=== PATIENT | female | born 1990 | race Caucasian/White ===

== ENCOUNTER 2024-05-01 12:38 | Outpatient (CLI) | payer MEDICAID, SELFPAY ==
[2024-05-01] VITALS (8 sets, daily range): BP systolic 98–117; BP diastolic 59–67; PULSE 64–86; RESP 16; BMI 39.4
--- NOTE | 2024-05-01 12:42 | US_ITS ---
WS: [id number] ULTRASOUND OB FOCUSED HISTORY: contractions, evaluate heart rate. COMPARISON: None available. Single intrauterine gestation is identified. Heart rate of 100 heart rate at 148 BPM. Fetus in variable position. Placenta is anterior with no abruption or previa. Grade 0. There is a Bra xton Jaimes along the lower uterine segment. US/US OB limited [id number] IMPRESSION: 1. Normal cardiac activity. 2. Anterior placenta.
--- NOTE | 2024-05-01 12:44 | US_ITS ---
WS: [id number] US transvaginal [id number] HISTORY: contractions, evaluate cervical length. COMPARISON: None available. Transvaginal imaging is performed to evaluate the cervix. The cervix is closed and normal length of 4 .4 cm. There is a mucous plug noted. No cervical insufficiency. US/US transvaginal [id number] IMPRESSION: No cervical insufficiency. Normal length.
[2024-05-01 14:18] LABS: Bacteria Urine TRACE /hpf; Bilirubin Urine Neg (Negative); Blood Urine Neg (Negative); Glucose Urine UA Norm (Normal); Ketones Urine Negative (Negative); Leukocyte Esterase Urine Negative (Negative); Nitrate Urine Negative (Negative); Protein Urine Neg (Negative); Squamous Epithelial Cell Urine 0-4 /hpf (0-5); Urine Appearance Clear (CLEAR); Urine Color Yellow (Yellow); Urobilinogen Urine Norm (Negative); WBC Urine 0-4 /hpf (0-5); pH Urine 6.5 (5-7)
[2024-05-01 14:19] LABS: Add Urine Culture? No
[2024-05-01] MEDS: hyDROXYzine 25 mg Capsule 50 MG PO (14:58)
[2024-05-01] MEDS: lactated ringers 1,000 ML 150 ML IV (14:59)
== END 2024-05-01 16:10 | disposition home or self-care (01) ==
LOC: OPOB 12:40 → OBGYN 12:41
PROVIDERS: Visit Provider Family Medicine
DX: O26.899 Other specified pregnancy related conditions, unspecified trimester (principal); Z3A.00 Weeks of gestation of pregnancy not specified; R10.9 Unspecified abdominal pain
CPT/HCPCS: 76815; 76830; 81001; J7120

== ENCOUNTER 2024-09-19 09:35 | Outpatient (CLI) | payer MEDICAID, SELFPAY ==
[2024-09-19 09:51] VITALS: BP 108/70; PULSE 82
[2024-09-19 09:53] VITALS: BMI 41.4
[2024-09-19 09:57] VITALS: BP 104/64; PULSE 76
[2024-09-19 10:01] LABS: Nitrazine Paper, PH Inconclusive
[2024-09-19 10:12] VITALS: BP 109/69; PULSE 71
[2024-09-19 10:28] VITALS: BP 109/69; PULSE 71; RESP 12
== END 2024-09-19 10:30 | disposition home or self-care (01) ==
LOC: OPOB 09:35 → OBGYN 09:36
PROVIDERS: Visit Provider Family Medicine
DX: O36.8190 Decreased fetal movements, unspecified trimester, not applicable or unspecified (principal); Z3A.00 Weeks of gestation of pregnancy not specified
CPT/HCPCS: 59025; 83986; 99211

== ENCOUNTER 2024-09-23 08:05 | Inpatient (IN) | payer MEDICAID, SELFPAY ==
[2024-09-23] VITALS (56 sets, daily range): BP systolic 104–136; BP diastolic 57–92; PULSE 62–98; RESP 17–18; TEMP 36.1–36.9; O2SAT 95–99; BMI 43.9
[2024-09-23] MEDS: dextrose 5%-lactated ringers 1,000 ML 125 ML IV ×2 (09:00→12:00)
[2024-09-23] MEDS: ampicillin 2,000 MG in sodium chloride 0.9% (plus) 50 ML 100 MG IV (09:00)
[2024-09-23 09:12] LABS: Basophils % 0.4 %; Eosinophils # 0.1 10^3/uL (0.0-0.8); Eosinophils % 1.9 %; Hematocrit 40.1 % (36-47); Lymphocytes # 1.5 10^3/uL (0.8-4.8); Lymphocytes % 21.3 %; Mean Corpuscular HGB Conc 31.4 g/dL (30-55); Mean Corpuscular Hemoglobin 28.2 pg (27-33); Mean Corpuscular Volume 89.7 fl (85-98); Mean Platelet Volume 10.1 fL (7.4-10.4); Monocytes # 0.6 10^3/uL (0.2-0.9); Monocytes % 8.6 %; Neutrophils # 4.71 10^3/uL (1.8-7.7); Neutrophils % 67.1 %; Nucleated Red Blood Cells % 0 %; Platelet Count 258 10^3/cmm (157-399); Red Blood Count 4.47 10^6/uL (3.85-5.65); Red Cell Distribution Width 14.5 % (12.1-15.1); White Blood Count 7.01 10^3/uL (3.29-11.43)
[2024-09-23] MEDS: oxytocin 30 UNIT/500 ML BAG IV (09:30)
--- NOTE | 2024-09-23 12:29 | P.ANESASSM_ITS ---
Pre-Anesthetic Assessment Height/Weight: Height 1.6 m Weight 112.491 kg Pulse BP Pulse Ox 98 134/81 98 09/23/24 12:25 09/23/24 12:23 09/23/24 12:25 Preop Diagnosis: Labor pain DARYL Was Beta Richard taken within 24 hours: N/A Was Clonidine taken within 24 hours: N/A Social No alcohol and No tobacco Exam alert, oriented x 3, clear to auscultation bilaterally and regular rate & rhythm Airway Submandibular: within normal limits Cervical ROM: within normal limits Mallampati: Class II Dentition: full History/ROS No significant history except as noted and No significant complaints Pulmonary None reported CV/HEM None reported Hx stones Hepatic None reported GI Gastroesophageal Reflux Disease Metabolic Morbid Obesity Musc/skel None reported Neuropsych None reported Anesthetic Plan ASA status: 2 Anesthesia: Anesthesia Evaluation and Regional (specify below) Other: DARYL Risk of > 500 ml blood loss (7ml/kg in children): No Medications/Allergies Current Medications Generic Name Dose Route Start Last Admin Trade Name Freq PRN Reason Stop Dose Admin Dextrose/Lactated Ringer's 1,000 mls @ 125 mls/hr 09/23/24 08:00 09/23/24 11:05 Dextrose 5%-Lactated Ringers IV 999 mls/hr .Q8H CESAR Infusion Oxytocin 30 unit in 500 mls @ 1 mls/hr 09/23/24 08:00 09/23/24 11:15 Pitocin IV 15 milliunit/min .Q24H CESAR 15 mls/hr Titration Protocol 1 MILLIUNIT/MIN PFSH Anesthesia Female Reproductive History : 5 Data Anesthesia 09/23/24 08:52 Short CBC 09/23/24 Range/Units 08:52 WBC 7.01 (3.29-11.43) 10^3/uL Hgb 12.60 (11.27-16.99) g/dL Hct 40.1 (36-47) % MCV 89.7 (85-98) fl Plt Count 258 (157-399) 10^3/cmm Neut % (Auto) 67.1 % Neut # (Auto) 4.71 (1.8-7.7) 10^3/uL Blood Bank 09/23/24 08:52 Blood Type O Positive Rho(D) Type Rh positive Antibody Screen Negative Cardiac Studies: 2 No Data to Display
--- NOTE | 2024-09-23 12:31 | ANES.PROC ---
Anesthesia Procedures Procedure/Date: 09/23/24 Epidural: Time Out Performed: Yes Consents Signed: Procedure Consent Consent: requested by attending/covering physician, from patient, risks and benefits reviewed and patient agrees to proceed Lumbar Level: L3-L4 Epidural position: sitting Epidural procedure: sterile prep of area, 1% lidocaine to numb the area, 18 g needle, negative for paresthesia passed, neg for paresthesia, test dose given, 1.5% xylocaine 1:200k epi (5cc), 0.2% Ropivacaine bolus ml (5cc and Fentanyl 100 mcg), placed PCEA, no systemic response, sterile dressing applied, L.U.D. no apparent complications and 0.2% Ropiavacaine @ mls/hr Additional Comments: Pt tolerated well
[2024-09-23] MEDS: ROPivacaine syringe 100 MG/50 ML SYRINGE 13 MG EPIDURAL ×2 (12:35→16:01)
[2024-09-23] MEDS: ampicillin 1,000 MG in sodium chloride 0.9% (plus) 50 ML 100 MG IV ×2 (12:37→16:07)
--- NOTE | 2024-09-23 17:54 | PM.OPHPUD ---
Labor & Delivery H&P Update Date of Procedure: September 23, 2024 Date H&P Performed: 09/20/24 Admission Diagnosis: IUP at 39 weeks 0 days gestation Preop diagnosis: Elective induction Planned procedure: Induction of labor and delivery
--- NOTE | 2024-09-23 17:55 | P.PCNOB_ITS ---
Delivery Note: Date of delivery: September 23, 2024 Pre-delivery diagnoses: IUP at 39 weeks 0 days gestation Post-delivery diagnoses: Normal spontaneous vaginal delivery of a viable female infant at 39 w eeks 0 days gestation Procedure: Normal spontaneous vaginal delivery Estimated blood loss (mL): 200 Pre-Delivery Course: The patient had routine care at [facility]. labs: Blood type O+, antibody negative, hepatitis B nonreactive, hep atitis C nonreactive, HIV nonreactive, rubella immune, GC chlamydia negative, RPR nonreactive, UDS positive for amphetamines, Q low risk, she passed her glucose tolerance test, she was GBS positive. Note: Though the patient was positive for amphetamines on her urine drug screen, there were no suspicious signs or symptoms during her care with myself. Consider false positive. Delivery: This is a 34-year-old -0-1-3 at 39 weeks 0 days gestation who is here for an elective induction. Her cervix was favorable so she was started on Pitocin. She was GBS positive and was started on ampicillin protocol. She received 3 doses of ampicillin prior to delivery. She received an epidural for pain management. She underwent artificial rupture of membranes with clear fluid. Rupture of membranes was approximately 5 hours prior to delivery. She only had to push through 2 contractions and had a normal spontaneous vaginal delivery of a viable female infant weight to be determined, Apgars 8 and 9 over an intact perineum. There was a loose body cord upon delivery. The was suctioned upon delivery and placed on the mother's chest. The cord was clamped and cut. The placenta was delivered grossly intact and normal to inspection. There was a superficial periclitoral tear that was not bleeding. No suturing was required. Mother and infant were doing well after delivery. Coding Level of Care Code Acute Code for Chg Fwd
[2024-09-23 20:41] LABS: Amphetamines Screen Urine Negative (Negative); Barbiturates Screen Urine Negative (Negative); Benzodiazepines Screen Urine Negative (Negative); Cocaine Screen Urine Negative (Negative); Opiate Screen Urine Negative (Negative); PCP Screen Urine Negative (Negative); THC Screen Urine Negative (Negative)
[2024-09-23] MEDS: ibuprofen 800 mg tablet PO (20:51)
[2024-09-24 04:32] VITALS: BP 120/86; PULSE 97; RESP 18; TEMP 36.5; O2SAT 98
[2024-09-24 06:59] LABS: Hematocrit 39.6 % (36-47); Mean Corpuscular HGB Conc 31.8 g/dL (30-55); Mean Corpuscular Hemoglobin 28.2 pg (27-33); Mean Corpuscular Volume 88.6 fl (85-98); Mean Platelet Volume 10.1 fL (7.4-10.4); Platelet Count 264 10^3/cmm (157-399); Red Blood Count 4.47 10^6/uL (3.85-5.65); Red Cell Distribution Width 14.5 % (12.1-15.1); White Blood Count 11.11 10^3/uL (3.29-11.43)
[2024-09-24] MEDS: lactated ringers 1,000 ML 999 ML IV (07:10)
[2024-09-24] MEDS: famotidine 20 mg/2 mL INJ IVP (07:30)
[2024-09-24] MEDS: metoclopramide 5 mg/mL SDV 2 mL 10 MG IVP (07:30)
[2024-09-24] MEDS: citric acid-sodium citrate 30 mL UDC PO (07:30)
--- NOTE | 2024-09-24 08:00 | ANE.PACU2 ---
Inpatient post-anesthesia follow up: Airway intact: Yes Vital signs: Temperature 97.6 F Pulse Rate 85 Respiratory Rate 16 Blood Pressure 121/85 Pulse Oximetry 98 Oxygen Delivery Me thod Room Air Oxygen Flow Rate Fraction of Inspir ed Oxygen Hydration adequate: Yes Nausea and vomiting: No Pain level: 1 Mental status: Baseline Epidural Start/End: Epidural Start Date: 09/23/24 Epidural Start Time: 12:08 Epidural End Date: 09/23/24 Epidural End Time: 17:55
--- NOTE | 2024-09-24 08:01 | PM.DCS ---
Discharge Providers Date of Admission: 09/23/24 08:05 Date of Discharge: September 24, 2024 Attending Provider at Admission: Amber Ryder MD Attending Provider at Discharge: Amber Ryder MD Reason for Visit Reason for Visit: iol Hospital Course Hospital Course This is a 34-year-old G5 now P4 who underwent an elective induction and had a viable female yesterday via normal spontaneous vaginal delivery. Today she is ambulating, tolerating a regular diet, has some cramping but otherwise no pain. She has decreased vaginal bleeding. She is comfortable with discharge home. Physical Exam Narrative: Alert and oriented, sitting up in bed, heart regular rate and rhythm, lungs clear to auscultation bilaterally, abdomen is soft and nontender, fundus is firm, extremities have trace edema but no calf tenderness Urinary Catheter Management: [place]: Cath Placed During This Visit: yes, but has since been removed by the nurse Reason for Continuing Indwelling Catheter: Decision to DC Catheter Urinary Catheter Date of Insertion: 09/23/24 Urinary Catheter Time of Insertion: 13:06 Date Urinary Catheter Removed: 09/23/24 Time Urinary Catheter Discontinued: 17:35 Discharge Data Studies Completed and Pending Laboratory Results WBC 11.11 10^3/uL (3.29-11.43) 09/24/24 06:45 RBC 4.47 10^6/uL (3.85-5.65) 09/24/24 06:45 Hgb 12.60 g/dL (11.27-16.99) 09/24/24 06:45 Hct 39.6 % (36-47) 09/24/24 06:45 MCV 88.6 fl (85-98) 09/24/24 06:45 MCH 28.2 pg (27-33) 09/24/24 06:45 MCHC 31.8 g/dL (30-55) 09/24/24 06:45 RDW 14.5 % (12.1-15.1) 09/24/24 06:45 Plt Count 264 10^3/cmm (157-399) 09/24/24 06:45 MPV 10.1 fL (7.4-10.4) 09/24/24 06:45 Neut % (Auto) 67.1 % 09/23/24 08:52 Lymph % (Auto) 21.3 % 09/23/24 08:52 [place] % (Auto) 8.6 % 09/23/24 08:52 Eos % (Auto) 1.9 % 09/23/24 08:52 Baso % (Auto) 0.4 % 09/23/24 08:52 Neut # (Auto) 4.71 10^3/uL (1.8-7.7) 09/23/24 08:52 Lymph # (Auto) 1.5 10^3/uL (0.8-4.8) 09/23/24 08:52 [place] # (Auto) 0.6 10^3/uL (0.2-0.9) 09/23/24 08:52 Eos # (Auto) 0.1 10^3/uL (0.0-0.8) 09/23/24 08:52 Baso # (Auto) 0.0 10^3/uL (0.0-0.1) 09/23/24 08:52 Nucleated RBC % (auto) 0 % 09/23/24 08:52 Nucleated RBCs # 0.0 /100WBC 09/23/24 08:52 Urine Opiates Screen Negative ng/mL (Negative) 09/23/24 20:14 Ur Barbiturates Screen Negative ng/mL (Negative) 09/23/24 20:14 Ur Phencyclidine Scrn Negative ng/mL (Negative) 09/23/24 20:14 Ur Amphetamines Screen Negative ng/mL (Negative) 09/23/24 20:14 U Benzodiazepines Scrn Negative ng/mL (Negative) 09/23/24 20:14 Urine Cocaine Screen Negative ng/mL (Negative) 09/23/24 20:14 U Marijuana (THC) Screen Negative ng/mL (Negative) 09/23/24 20:14 Blood Type O Positive 09/23/24 08:52 Rho(D) Type Rh positive 09/23/24 08:52 Antibody Screen Negative 09/23/24 08:52 Vitals Last Vital Signs Temp 97.7 F 09/24/24 04:32 Pulse 97 09/24/24 04:32 Resp 18 09/24/24 04:32 BP 120/86 09/24/24 04:32 Pulse Ox 98 09/24/24 04:32 O2 Del Method Room Air 09/24/24 04:32 Discharge Plan Discharge Patient Disposition: Home Condition: Stable Prescriptions: Continued 1 tab PO DAILY Discharge Orders: Discharge Order (Routine); Ordered 09/24/24 Ordered By: Amber Ryder Referrals: Amber Ryder MD [Physician] - 1 month Discharge Diet: Usual diet Discharge Activity: Limit activity as instructed Patient Instructions: Opioid Safety Activity Restrictions/Additional Instructions: Nothing per vagina for 6 weeks Discharge Attestations Time Spent in Discharge Care*: less than 30 min Quality Metrics Clinical Quality Measures [ No reported AMI, CVA or VTE this stay] Coding Level of Care Code Acute Code for Chg Fwmariely
[2024-09-24] MEDS: PRENATAL VIT NO.130/IRON/FOLIC 1 EACH TABLET PO (08:56)
[2024-09-24] MEDS: ibuprofen 800 mg tablet PO ×2 (08:56→15:42)
[2024-09-24 10:00] VITALS: BP 116/71; PULSE 73; RESP 17; TEMP 36.6; O2SAT 97
[2024-09-24 16:10] VITALS: BP 147/92; PULSE 74; RESP 17; TEMP 36.7; O2SAT 97
[2024-09-24 17:43] VITALS: BP 121/85; PULSE 85; RESP 16; TEMP 36.4; O2SAT 98
--- NOTE | 2024-09-24 17:45 | PC.NURSE ---
Patient refused flu shot at time of discharge
== END 2024-09-24 18:15 | disposition home or self-care (01) | DRG 807 ==
LOC: OPOB 17:57 → OBGYN 17:57
PROVIDERS: Admitting Provider Family Medicine; Visit Provider Family Medicine
DX: O99.824 Streptococcus B carrier state complicating childbirth (principal); Z37.0 Single live birth; Z3A.39 39 weeks gestation of pregnancy; O69.81X0 Labor and delivery complicated by cord around neck, without compression, not applicable or unspecified
CPT/HCPCS: 36415; 51702; 59025; 59409; 80306; 85025; 85027; 86850; 86900; 96374; J0290; J0330; J1100; J2405; J2590; J2704; J2765; J2795; J3010; J3490; J7120; J7121

== ENCOUNTER 2025-06-15 11:00 | Oncology outpatient (recurring) (ONCR) | payer MEDICAID, SELFPAY ==
[2025-06-07 16:24] LABS: Hematocrit 40.6 % (36-47); Hemoglobin 13.00 g/dL (11.27-16.99); Mean Corpuscular HGB Conc 32.0 g/dL (30-55); Mean Corpuscular Hemoglobin 28.6 pg (27-33); Mean Corpuscular Volume 89.2 fl (85-98); Nucleated Red Blood Cells % 0 %; Platelet Count 411 10^3/cmm (157-399); Red Blood Count 4.55 10^6/uL (3.85-5.65); White Blood Count 10.46 10^3/uL (3.29-11.43)
[2025-06-07 16:48] LABS: Alanine Aminotransferase 11 U/L (0-33); Albumin Level 4.4 g/dL (3.5-5.2); Alkaline Phosphatase 69 U/L (35-105); Anion Gap 16.3 (5-19); Aspartate Amino Transferase 12 U/L (0-32); Blood Urea Nitrogen 11 mg/dL (6-20); Calcium 9.1 mg/dL (8.5-10.5); Carbon Dioxide 26 mmol/L (22-29); Chloride 104 mmol/L (98-107); Creatinine Clr Calc Pharmacy 155.6660; Globulin 2.8 g/dL (1.3-4.6); Glucose 95 mg/dL (65-115); Osmolality Calculated 293 mOsm/kg (285-295); Potassium 4.3 mmol/L (3.5-5.1); Sodium 142 mmol/L (136-145); Total Protein 7.2 g/dL (6.6-8.7)
--- NOTE | 2025-06-15 11:00 | PETR_ITS ---
PROCEDURE INFORMATION: Exam: PET/CT Whole Body Exam date and time: 06/15/2025 12:12 PM Age: 35 years old Clinical indication: Condition or disease; Primary cancer: Cutaneous malignant melanoma; Initial oncological staging assessment LABS AND CLINICAL REPORTS: Glucose: 106 mg/dl Treatment strategy for malignancy (PET staging): Initial Staging (PI) TECHNIQUE: Imaging protocol: Following at least four-hour fasting and following the injection of radiopharmaceutical, low dose CT images were obtained. Then, PET images were obtained. Attenuation corrected images were constructed using the CT scan. Fused images of PET and CT were reviewed. The standardized uptake values (SUV) reported below are maximum values within a region of interest, expressed in gm/ml. Exam includes the whole body. SUV normalization method: BodyWeight Radiopharmaceutical: 11.71 mCi F-18 FDG (Fluorodeoxyglucose), IV. Time of imaging post radiopharmaceutical administration: 45 minutes Injection site: RIGHT AC COMPARISON: [place] [id number] 07/17/2024 10:18 AM FINDINGS: Brain: No abnormal uptake. Pharynx: Bilateral symmetric tonsillar uptake is suggestive of benign finding. Larynx: No abnormal uptake. Thyroid: About 1 cm right thyroid nodule measures 24.3 SUV. Lungs, pleura and trachea: No abnormal uptake. No lung nodules or masses. No pleural effusion. Heart: No abnormal uptake. There is no cardiomegaly. The no coronary There is no pericardial effusion. Mediastinal space: No abnormal uptake. Liver: No abnormal uptake. Gallbladder and biliary ducts: Unremarkable. Status post cholecystectomy. Pancreas: Normal distribution of radiotracer. Spleen: No abnormal uptake. No splenomegaly. Adrenal glands: No abnormal uptake. No nodules. Kidneys and ureters: Normal physiologic uptake. No hydronephrosis. Stomach and bowel: No abnormal uptake. Vasculature: No abnormal uptake. Lymph nodes: No abnormal uptake. Skeleton: No abnormal uptake in the visualized axial and appendicular skeleton. Soft tissues: Linear area of increased uptake of 3.9 SUV along the surgical incision in the left upper back represents benign postsurgical finding. 8 x 3.3 x 10 cm fluid collection in the left posterior upper back laterally extending into the left axilla represents postsurgical seroma. There are surgical clips in the left axilla suggestive of sequela of prior lymphadenectomy. METRICS: Mediastinal blood pool maximal uptake is 3.1 SUV. Liver maximal uptake is 3.7 SUV. PET/PET WB melanoma INITIAL [id number] IMPRESSION: 1. About 1 cm right thyroid nodule with intense uptake of 24.3 SUV. Further evaluation with ultrasound and biopsy is recommended to exclude malignancy. No other FDG avid findings. 2. Benign postsurgical changes after melanoma excision in the left upper back and left axillary lymphadenectomy.
== END 2025-06-21 23:59 | disposition home or self-care (01) ==
LOC: ONCMED 06-18 10:41
PROVIDERS: PCP Family Medicine; Visit Provider Internal Medicine
DX: C43.9 Malignant melanoma of skin, unspecified (principal); E04.1 Nontoxic single thyroid nodule; Z98.890 Other specified postprocedural states; R93.89 Abnormal findings on diagnostic imaging of other specified body structures; Z90.49 Acquired absence of other specified parts of digestive tract; M79.89 Other specified soft tissue disorders; Z53.9 Procedure and treatment not carried out, unspecified reason
CPT/HCPCS: 36415; 78816; 80053; 83615; 85025; A9552

== ENCOUNTER 2025-06-18 07:46 | Day surgery (SDC) | payer MEDICAID, SELFPAY ==
[2025-06-18] VITALS (8 sets, daily range): BP systolic 112–137; BP diastolic 67–81; PULSE 84–106; RESP 17–23; TEMP 36.1–37.2; O2SAT 94–98; BMI 42.8
[2025-06-18 08:19] LABS: OR HCG Qualitative Urine Negative (Negative)
--- NOTE | 2025-06-18 08:29 | P.HPUD_ITS ---
Surgery/Procedure H&P Update DATE OF PROCEDURE: June 18, 2025 DATE H&P PERFORMED: 06/13/25 H&P UPDATE INFORMATION: I have reviewed H&P completed within last 30 days, I have examined patient prior to procedure, No changes to prior documentation, H&P is in [facility] EMR on date indicated and Risks and benefits of the procedure reviewed PLANNED PROCEDURE: Operation Date: 06/18/25 09:35 Proposed Procedures p Port a Cath Insertion 40095 Z95.828 C43.9(Not Applicable) - Boone Bland MD
--- NOTE | 2025-06-18 09:35 | SC_ITS ---
WS: [id number] C-ARM RADIOGRAPHS CHEST; 2 IMAGES HISTORY: intraoperative COMPARISON: None available. Intraoperative imaging during Mediport placement. Mediport projects over the RIGHT upper thorax with tip directed towards the distal SVC. SC/C-arm FL for CVA [id number] IMPRESSION: Intraoperative imaging during Mediport placement.
--- NOTE | 2025-06-18 10:03 | ANES.PREANE2 ---
Pre-Anesthetic Assessment Height/Weight: Height 5 ft 3 in Weight 242 lb Temp Pulse Resp BP Pulse Ox O2 Del Method 99 F 84 18 123/81 98 Room Air 06/18/25 08:06 06/18/25 08:06 06/18/25 08:06 06/18/25 08:06 06/18/25 08:06 06/18/25 08:09 Preop Diagnosis: malignant melanoma Operation Date: 06/18/25 09:35 Proposed Procedures p Port a Cath Insertion 33702 Z95.828 C43.9(Not Applicable) - Boone Bland MD Was Beta Richard taken within 24 hours: N/A Was Clonidine taken within 24 hours: N/A Last intake: Intake Last Liquid Date 06/17/25 Last Liquid Time 21:00 Last Solid Date 06/17/25 Last Solid Time 21:00 Social No alcohol and No tobacco Exam alert, oriented x 3, clear to auscultation bilaterally and regular rate & rhythm Airway Submandibular: within normal limits Cervical ROM: within normal limits Mallampati: Class II Dentition: full Anesthetic Plan ASA status: 3 Anesthesia: MAC Other: No prior issues with anesthesia NPO since yesterday evening Patient has cutaneous malignant melanoma planning on immunotherapy Denies any cardiac or pulmonary issues METs greater than 4 Plan for MAC anesthesia with local via surgeon Medications/Allergies Home Medications ?Medication ?Instructions ?Recorded ?Confirmed ?Last Taken ?Type levonorgestrel-ethinyl estradiol 1 tab PO DIRECTED 06/07/25 06/18/25 06/17/25 History 0.1 mg-20 mcg tablet (Aviane) Allergies Allergy/AdvReac Type Severity Reaction Status Date / Time adhesive Allergy ALGY-Rash Verified 06/14/25 13:44 Latex, Natural Rubber Allergy ALGY-Rash Verified 06/13/25 13:59 Current Medications Generic Name Dose Route Start Last Admin Trade Name Freq PRN Reason Stop Dose Admin Sodium Chloride 1,000 mls @ 30 mls/hr 06/18/25 08:00 06/18/25 08:15 Sodium Chloride 0.9% IV 06/19/25 07:59 30 mls/hr .Q24H CESAR Administration PFSH Anesthesia Social History Smoking and tobacco/nicotine status: never used tobacco/nicotine
[2025-06-18] MEDS: ceFAZolin 2,000 mg SDV 2000 MG IVP (10:14)
[2025-06-18] MEDS: BUPivacaine 0.25% INJ 10 mL INJECTION (10:36)
[2025-06-18] MEDS: lidocaine-epi 1% 20 mL INJ 10 ML INJECTION (10:36)
[2025-06-18] MEDS: heparin, porcine 1,000 unit/mL INJ 10 mL 6000 UNIT IRRIGATION (10:36)
--- NOTE | 2025-06-18 10:58 | PM.OP ---
Operative Report Date of procedure: June 18, 2025 Pre-op diagnosis: Malignant melanoma Post-op diagnosis: Same Post-op findings: Normal vascular anatomy of the right neck Procedure done: Insertion of right IJ Port-A-Cath Implants: Bard Port-A-Cath Specimens removed/disposition: None Surgeon: Boone Bland MD Cosmetology Educator: FAHEEM OR staff Estimated blood loss: 10 Complications: none Brief History: 35-year-old female with history of malignant melanoma who presents for port placement to initiate systemic therapy. After discussion of risk benefits we decided to proceed Procedure: Patient was brought into the OR, she was placed in a supine position, moderate anesthesia sedation was given. Timeout was conducted after the skin was prepped and draped in the usual sterile fashion. I then proceeded to identify the right IJ vein with ultrasound, I infiltrated local anesthesia on top of the vein. I then proceeded to cannulate the vein under direct ultrasound guidance using an 18-gauge needle, the needle tip was seen entering the vein and immediate return of blood was noted. A wire was advanced through the needle and the needle was removed. The position of the wire was verified with ultrasound and fluoroscopy. The wire was then fixed to the drapes. I then placed my attention to the chest, local anesthesia was infiltrated in the previously marked area on the chest and then a tract connecting the chest to the wire insertion site in the neck. I then proceeded to make a 3.5 cm incision in the right upper chest, the incision was deepened to subcutaneous tissue with electrocautery and electrocautery was used to create the subcutaneous pocket to house the Port-A-Cath. I then proceeded to use a hemostat to create a tunnel from the chest wound to the neck. I then proceeded to make a 0.5 cm incision at the level of the wire insertion site in the neck. Hemostasis was verified. I then placed the Port-A-Cath in the pocket and tunneled the catheter using the provided tunneler. The catheter was cut to appropriate length under fluoroscopy guidance and then flushed. I then proceeded to insert an introducer with a peel-off sheath over the wire under direct fluoroscopic guidance. I then remove the wire and the introducer leaving the peel-off sheath in place. The catheter was then advanced through the peel-off sheath and the peel-off sheath was removed leaving the catheter in place. Fluoroscopy showed evidence of Adequate catheter position. I then proceeded to access the port; the port was retrieving blood and flushing fine, I then hep-locked the catheter. Hemostasis was verified. The wound was closed in layers using #3-0 Vicryl for the subcutaneous tissue and #4 Monocryl for the skin. Dermabond was applied. At the end of the procedure all counts were correct. The patient tolerated well the procedure and was transferred to the PACU in stable condition.
[2025-06-18] MEDS: oxyCODONE 5 mg IR Tab/Cap PO (11:45)
--- NOTE | 2025-06-18 12:12 | ANE.PACU2 ---
Inpatient post-anesthesia follow up: Airway intact: Yes Vital signs: Temperature 97 F Pulse Rate 87 Respiratory Rate 18 Blood Pressure 112/73 Pulse Oximetry 96 Oxygen Delivery Me thod Room Air Oxygen Flow Rate 0 Fraction of Inspir ed Oxygen Hydration adequate: Yes Nausea and vomiting: No Pain level: 1 Mental status: Baseline
== END 2025-06-18 12:12 | disposition home or self-care (01) ==
PROVIDERS: Student in an Organized Health Care Education/Training Program; PCP Family Medicine; Visit Provider Surgery
PROC: (CPT 36561; principal; 2025-06-18 09:25)
DX: C43.9 Malignant melanoma of skin, unspecified (principal)
CPT/HCPCS: 36561; 76000; 77001; 81025; C1788; J0690; J1644; J2250; J2704; J3010; J3490; J7030; J9999

== ENCOUNTER 2025-07-11 07:30 | Oncology outpatient (recurring) (ONCR) | payer MEDICAID, SELFPAY ==
--- NOTE | 2025-06-29 17:00 | US_ITS ---
WS: [id number] THYROID ULTRASOUND HISTORY: Right thyroid nodule COMPARISON: PET/CT 06/15/2025 Right lobe: 1.6 cm x 1.3 cm x 3.9 cm (w x ap x l). Volume: 4.0 cm3. Mid anterior RIGHT thyroid towards the isthmus. Nodule is well-circumscribed measures 0.8 x 0.7 x 0.9 cm. No echogenic foci. This nodule was positive on recent PET/CT. Left lobe: 1.5 cm x 1.2 cm x 3.6 cm (w x ap x l). Volume: 3.2 cm3. Normal size and echotexture. No significant or dominant nodules are present. Isthmus: 0.4 cm. US/US thyroid [id number] IMPRESSION: 1. TI-RADS 4: Moderately suspicious nodule mid RIGHT thyroid towards the isthm us. This nodule was positive on PET/CT. Recommend ultrasound-guided FNA at this time. 2. Negative LEFT thyroid.
[2025-07-11 07:42] LABS: Hematocrit 41.3 % (36-47); Hemoglobin 13.30 g/dL (11.27-16.99); Mean Corpuscular HGB Conc 32.2 g/dL (30-55); Mean Corpuscular Hemoglobin 28.5 pg (27-33); Mean Corpuscular Volume 88.6 fl (85-98); Nucleated Red Blood Cells % 0 %; Platelet Count 353 10^3/cmm (157-399); Red Blood Count 4.66 10^6/uL (3.85-5.65); White Blood Count 7.93 10^3/uL (3.29-11.43)
[2025-07-11 08:12] LABS: Alanine Aminotransferase 19 U/L (0-33); Albumin Level 4.3 g/dL (3.5-5.2); Alkaline Phosphatase 74 U/L (35-105); Anion Gap 15.2 (5-19); Aspartate Amino Transferase 19 U/L (0-32); Blood Urea Nitrogen 11 mg/dL (6-20); Calcium 9.0 mg/dL (8.5-10.5); Carbon Dioxide 24 mmol/L (22-29); Chloride 103 mmol/L (98-107); Creatinine Clr Calc Pharmacy 133.1072; Free T4 Free Thyroxine 1.10 ng/dL (0.82-1.77); Globulin 2.4 g/dL (1.3-4.6); Glucose 108 mg/dL (65-115); Osmolality Calculated 286 mOsm/kg (285-295); Potassium 4.2 mmol/L (3.5-5.1); Sodium 138 mmol/L (136-145); Thyroid Stimulating Hormone 0.72 uIU/mL (0.27-4.20); Total Protein 6.7 g/dL (6.6-8.7)
[2025-07-11 08:26] LABS: Hepatitis B Surface Antigen Non-Reactive (Nonreactive)
[2025-07-11 10:14] LABS: HCG Qualitative Urine. Negative (Negative)
[2025-07-11] MEDS: pembrolizumab 200 MG in sodium chloride 0.9% 250 ML 516 MG IV (10:24)
[2025-07-11 11:23] VITALS: BP 105/69; PULSE 79; RESP 16; TEMP 36.2; O2SAT 99
== END 2025-07-11 23:59 | disposition home or self-care (01) ==
PROVIDERS: Nurse Practitioner Family; PCP Family Medicine; Visit Provider Internal Medicine
DX: Z51.12 Encounter for antineoplastic immunotherapy; C43.9 Malignant melanoma of skin, unspecified; Z79.899 Other long term (current) drug therapy; Z53.9 Procedure and treatment not carried out, unspecified reason
CPT/HCPCS: 76536; 80053; 81025; 82533; 84439; 84443; 85025; 86705; 86706; 87340; 96413; 99213; A4222; J7050; J9271

== ENCOUNTER 2025-08-01 11:53 | Oncology outpatient (recurring) (ONCR) | payer MEDICAID, SELFPAY ==
[2025-08-01 12:15] LABS: Hematocrit 41.4 % (36-47); Hemoglobin 13.20 g/dL (11.27-16.99); Mean Corpuscular HGB Conc 31.9 g/dL (30-55); Mean Corpuscular Hemoglobin 28.3 pg (27-33); Mean Corpuscular Volume 88.7 fl (85-98); Nucleated Red Blood Cells % 0 %; Platelet Count 390 10^3/cmm (157-399); Red Blood Count 4.67 10^6/uL (3.85-5.65); White Blood Count 9.10 10^3/uL (3.29-11.43)
[2025-08-01 12:45] LABS: Alanine Aminotransferase 12 U/L (0-33); Albumin Level 4.3 g/dL (3.5-5.2); Alkaline Phosphatase 67 U/L (35-105); Anion Gap 15.3 (5-19); Aspartate Amino Transferase 13 U/L (0-32); Blood Urea Nitrogen 9 mg/dL (6-20); Calcium 9.0 mg/dL (8.5-10.5); Carbon Dioxide 24 mmol/L (22-29); Chloride 105 mmol/L (98-107); Globulin 2.7 g/dL (1.3-4.6); Glucose 118 mg/dL (65-115); Osmolality Calculated 290 mOsm/kg (285-295); Potassium 4.3 mmol/L (3.5-5.1); Sodium 140 mmol/L (136-145); Thyroid Stimulating Hormone 0.88 uIU/mL (0.27-4.20); Total Protein 7.0 g/dL (6.6-8.7)
[2025-08-01] MEDS: pembrolizumab 200 MG in sodium chloride 0.9% 250 ML 516 MG IV (13:43)
[2025-08-01 14:37] VITALS: BP 123/80; PULSE 84; RESP 17; TEMP 36.6; O2SAT 99
== END 2025-08-01 23:59 | disposition home or self-care (01) ==
PROVIDERS: PCP Family Medicine; Visit Provider Nurse Practitioner Family
DX: Z51.12 Encounter for antineoplastic immunotherapy (principal); C43.9 Malignant melanoma of skin, unspecified; Z79.899 Other long term (current) drug therapy
CPT/HCPCS: 80053; 84443; 85025; 96413; A4222; J7050; J9271

== ENCOUNTER 2025-08-02 12:55 | Oncology outpatient (recurring) (ONCR) | payer MEDICAID, SELFPAY ==
--- NOTE | 2025-08-02 13:00 | US_ITS ---
WS: [id number] ULTRASOUND-GUIDED RIGHT THYROID NODULE FNA HISTORY: RIGHT thyroid nodule, positive on PET/CT. Procedure, risks, and complications were explained to the patient. Consent has been obtained. Comparison: 06/29/2025 and PET/CT 06/15/2025 The skin is cleansed with ChloraPrep and anesthetized with 1% buffered lidocaine. FNA performed with 25 gauge needles. electroneurodiagnostic technologist is present to fix slides. Hypoechoic nodule is targeted within the RIGHT thyroid. There was a moderate amount of bleeding following the thyroid biopsy. Patient is observed for 15 minutes after procedure with no complications. No progression of the bleeding adjacent to the thyroid nodule. Patient is instructed to return to the emergency department if there are any symptoms of shortness of breath or enlarging neck hematoma. US/US biopsy/FNA thyroid [id number] IMPRESSION: Status post FNA of a RIGHT thyroid nodule. Final pathology results pending. If thyroid nodule cytology is benign consider surgical removal due to the ashely rning ultrasound features and the positive PET/CT findings.
== END 2025-08-21 23:59 | disposition home or self-care (01) ==
PROVIDERS: PCP Family Medicine; Visit Provider Nurse Practitioner Family
DX: E04.1 Nontoxic single thyroid nodule (principal)
CPT/HCPCS: 10005; 88173

== ENCOUNTER 2025-08-22 11:31 | Oncology outpatient (recurring) (ONCR) | payer MEDICAID, SELFPAY ==
[2025-08-22 11:49] LABS: Hematocrit 40.1 % (36-47); Hemoglobin 12.70 g/dL (11.27-16.99); Mean Corpuscular HGB Conc 31.7 g/dL (30-55); Mean Corpuscular Hemoglobin 28.5 pg (27-33); Mean Corpuscular Volume 89.9 fl (85-98); Nucleated Red Blood Cells % 0 %; Platelet Count 358 10^3/cmm (157-399); Red Blood Count 4.46 10^6/uL (3.85-5.65); White Blood Count 10.37 10^3/uL (3.29-11.43)
[2025-08-22 12:16] LABS: Alanine Aminotransferase 15 U/L (0-33); Albumin Level 4.2 g/dL (3.5-5.2); Alkaline Phosphatase 70 U/L (35-105); Anion Gap 15.1 (5-19); Aspartate Amino Transferase 15 U/L (0-32); Blood Urea Nitrogen 9 mg/dL (6-20); Calcium 9.0 mg/dL (8.5-10.5); Carbon Dioxide 24 mmol/L (22-29); Chloride 104 mmol/L (98-107); Creatinine Clr Calc Pharmacy 154.5422; Globulin 2.8 g/dL (1.3-4.6); Glucose 107 mg/dL (65-115); Osmolality Calculated 287 mOsm/kg (285-295); Potassium 4.1 mmol/L (3.5-5.1); Sodium 139 mmol/L (136-145); Thyroid Stimulating Hormone 0.16 uIU/mL (0.27-4.20); Total Protein 7.0 g/dL (6.6-8.7)
[2025-08-22] MEDS: pembrolizumab 200 MG in sodium chloride 0.9% 250 ML 516 MG IV (13:25)
[2025-08-22 13:46] LABS: Free T4 Free Thyroxine 1.34 ng/dL (0.82-1.77)
[2025-08-22 14:12] VITALS: BP 124/76; PULSE 86
== END 2025-08-22 23:59 | disposition home or self-care (01) ==
PROVIDERS: PCP Family Medicine; Visit Provider Nurse Practitioner Family
DX: Z51.12 Encounter for antineoplastic immunotherapy (principal); C43.9 Malignant melanoma of skin, unspecified; R79.89 Other specified abnormal findings of blood chemistry; Z79.899 Other long term (current) drug therapy
CPT/HCPCS: 80053; 84439; 84443; 84481; 85025; 96413; A4222; J7050; J9271

== ENCOUNTER 2025-09-12 11:29 | Oncology outpatient (recurring) (ONCR) | payer MEDICAID, SELFPAY ==
[2025-09-12 12:05] LABS: Hematocrit 39.2 % (36-47); Hemoglobin 12.70 g/dL (11.27-16.99); Mean Corpuscular HGB Conc 32.4 g/dL (30-55); Mean Corpuscular Hemoglobin 28.6 pg (27-33); Mean Corpuscular Volume 88.3 fl (85-98); Nucleated Red Blood Cells % 0 %; Platelet Count 342 10^3/cmm (157-399); Red Blood Count 4.44 10^6/uL (3.85-5.65); White Blood Count 10.95 10^3/uL (3.29-11.43)
[2025-09-12 12:40] LABS: Alanine Aminotransferase 18 U/L (0-33); Albumin Level 4.3 g/dL (3.5-5.2); Alkaline Phosphatase 72 U/L (35-105); Anion Gap 17.2 (5-19); Aspartate Amino Transferase 14 U/L (0-32); Blood Urea Nitrogen 8 mg/dL (6-20); Calcium 9.0 mg/dL (8.5-10.5); Carbon Dioxide 23 mmol/L (22-29); Chloride 104 mmol/L (98-107); Creatinine Clr Calc Pharmacy 185.1412; Globulin 2.4 g/dL (1.3-4.6); Glucose 115 mg/dL (65-115); Osmolality Calculated 289 mOsm/kg (285-295); Potassium 4.2 mmol/L (3.5-5.1); Sodium 140 mmol/L (136-145); Thyroid Stimulating Hormone 0.01 uIU/mL (0.27-4.20); Total Protein 6.7 g/dL (6.6-8.7)
[2025-09-12] MEDS: pembrolizumab 200 MG in sodium chloride 0.9% 250 ML 516 MG IV (14:02)
[2025-09-12 14:43] VITALS: BP 128/82; PULSE 96; RESP 16; TEMP 36.4; O2SAT 99
== END 2025-09-12 23:59 | disposition home or self-care (01) ==
PROVIDERS: PCP Family Medicine; Visit Provider Nurse Practitioner Family
DX: Z51.12 Encounter for antineoplastic immunotherapy (principal); C43.9 Malignant melanoma of skin, unspecified; Z79.899 Other long term (current) drug therapy
CPT/HCPCS: 80053; 84443; 85025; 96413; A4222; J7050; J9271

== ENCOUNTER 2025-10-03 12:57 | Oncology outpatient (recurring) (ONCR) | payer MEDICAID, SELFPAY ==
[2025-10-03 13:17] LABS: Hematocrit 39.9 % (36-47); Hemoglobin 12.90 g/dL (11.27-16.99); Mean Corpuscular HGB Conc 32.3 g/dL (30-55); Mean Corpuscular Hemoglobin 28.1 pg (27-33); Mean Corpuscular Volume 86.9 fl (85-98); Nucleated Red Blood Cells % 0 %; Platelet Count 350 10^3/cmm (157-399); Red Blood Count 4.59 10^6/uL (3.85-5.65); White Blood Count 10.02 10^3/uL (3.29-11.43)
[2025-10-03 13:40] LABS: Alanine Aminotransferase 18 U/L (0-33); Albumin Level 4.2 g/dL (3.5-5.2); Alkaline Phosphatase 71 U/L (35-105); Anion Gap 15.9 (5-19); Aspartate Amino Transferase 15 U/L (0-32); Blood Urea Nitrogen 11 mg/dL (6-20); Calcium 8.8 mg/dL (8.5-10.5); Carbon Dioxide 24 mmol/L (22-29); Chloride 106 mmol/L (98-107); Globulin 2.5 g/dL (1.3-4.6); Glucose 121 mg/dL (65-115); Osmolality Calculated 295 mOsm/kg (285-295); Potassium 3.9 mmol/L (3.5-5.1); Sodium 142 mmol/L (136-145); Thyroid Stimulating Hormone 0.03 uIU/mL (0.27-4.20); Total Protein 6.7 g/dL (6.6-8.7)
[2025-10-03] MEDS: pembrolizumab 200 MG in sodium chloride 0.9% 250 ML 516 MG IV (14:48)
[2025-10-03 15:22] LABS: Free T4 Free Thyroxine 1.24 ng/dL (0.82-1.77)
[2025-10-03 15:33] VITALS: BP 123/77; PULSE 80; RESP 17; TEMP 36.6; O2SAT 99
== END 2025-10-03 23:59 | disposition home or self-care (01) ==
PROVIDERS: PCP Family Medicine; Visit Provider Nurse Practitioner Family
DX: Z51.12 Encounter for antineoplastic immunotherapy (principal); C43.9 Malignant melanoma of skin, unspecified; R79.89 Other specified abnormal findings of blood chemistry; Z79.899 Other long term (current) drug therapy
CPT/HCPCS: 80053; 84439; 84443; 84481; 85025; 96413; A4222; J7050; J9271

== ENCOUNTER 2025-10-24 09:43 | Oncology outpatient (recurring) (ONCR) | payer MEDICAID, SELFPAY ==
[2025-10-24 10:06] LABS: Hematocrit 38.9 % (36-47); Hemoglobin 12.70 g/dL (11.27-16.99); Mean Corpuscular HGB Conc 32.6 g/dL (30-55); Mean Corpuscular Hemoglobin 28.6 pg (27-33); Mean Corpuscular Volume 87.6 fl (85-98); Nucleated Red Blood Cells % 0 %; Platelet Count 363 10^3/cmm (157-399); Red Blood Count 4.44 10^6/uL (3.85-5.65); White Blood Count 8.44 10^3/uL (3.29-11.43)
[2025-10-24 10:36] LABS: Alanine Aminotransferase 12 U/L (0-33); Albumin Level 4.1 g/dL (3.5-5.2); Alkaline Phosphatase 66 U/L (35-105); Anion Gap 14.0 (5-19); Aspartate Amino Transferase 12 U/L (0-32); Blood Urea Nitrogen 10 mg/dL (6-20); Calcium 8.7 mg/dL (8.5-10.5); Carbon Dioxide 24 mmol/L (22-29); Chloride 105 mmol/L (98-107); Globulin 2.5 g/dL (1.3-4.6); Glucose 110 mg/dL (65-115); Osmolality Calculated 288 mOsm/kg (285-295); Potassium 4.0 mmol/L (3.5-5.1); Sodium 139 mmol/L (136-145); Thyroid Stimulating Hormone 1.58 uIU/mL (0.27-4.20); Total Protein 6.6 g/dL (6.6-8.7)
[2025-10-24] MEDS: pembrolizumab 200 MG in sodium chloride 0.9% 250 ML 516 MG IV (11:33)
[2025-10-24 12:12] VITALS: BP 133/79; PULSE 71; RESP 16; TEMP 36.3; O2SAT 99
[2025-10-24 14:40] LABS: Free T4 Free Thyroxine 0.87 ng/dL (0.82-1.77)
== END 2025-10-24 23:59 | disposition home or self-care (01) ==
PROVIDERS: PCP Family Medicine; Visit Provider Nurse Practitioner Family
DX: Z51.12 Encounter for antineoplastic immunotherapy (principal); C43.9 Malignant melanoma of skin, unspecified; R79.89 Other specified abnormal findings of blood chemistry; Z79.899 Other long term (current) drug therapy
CPT/HCPCS: 80053; 84439; 84443; 85025; 96413; A4222; J7050; J9271

== ENCOUNTER 2025-11-14 08:49 | Oncology outpatient (recurring) (ONCR) | payer MEDICAID, SELFPAY ==
[2025-11-14 09:21] LABS: Hematocrit 41.4 % (36-47); Hemoglobin 13.00 g/dL (11.27-16.99); Mean Corpuscular HGB Conc 31.4 g/dL (30-55); Mean Corpuscular Hemoglobin 28.0 pg (27-33); Mean Corpuscular Volume 89.0 fl (85-98); Nucleated Red Blood Cells % 0 %; Platelet Count 393 10^3/cmm (157-399); Red Blood Count 4.65 10^6/uL (3.85-5.65); White Blood Count 8.39 10^3/uL (3.29-11.43)
[2025-11-14 10:00] LABS: Alanine Aminotransferase 15 U/L (0-33); Albumin Level 4.3 g/dL (3.5-5.2); Alkaline Phosphatase 76 U/L (35-105); Anion Gap 14.1 (5-19); Aspartate Amino Transferase 18 U/L (0-32); Blood Urea Nitrogen 7 mg/dL (6-20); Calcium 9.1 mg/dL (8.5-10.5); Carbon Dioxide 26 mmol/L (22-29); Chloride 104 mmol/L (98-107); Globulin 2.4 g/dL (1.3-4.6); Glucose 120 mg/dL (65-115); Osmolality Calculated 289 mOsm/kg (285-295); Potassium 4.1 mmol/L (3.5-5.1); Sodium 140 mmol/L (136-145); Thyroid Stimulating Hormone 2.57 uIU/mL (0.27-4.20); Total Protein 6.7 g/dL (6.6-8.7)
[2025-11-14] MEDS: pembrolizumab 200 MG in sodium chloride 0.9% 250 ML 516 MG IV (10:58)
[2025-11-14 11:35] VITALS: BP 116/75; PULSE 70; TEMP 36.3; O2SAT 98
== END 2025-11-14 23:59 | disposition home or self-care (01) ==
LOC: ONCMED 08:50
PROVIDERS: Internal Medicine; PCP Family Medicine; Visit Provider Nurse Practitioner Family
DX: Z51.12 Encounter for antineoplastic immunotherapy (principal); C43.9 Malignant melanoma of skin, unspecified; Z79.899 Other long term (current) drug therapy
CPT/HCPCS: 80053; 83615; 84443; 85025; 96413; A4222; J7050; J9271